=== PATIENT | female | born 1970 | race Hispanic/Latino ===

== ENCOUNTER 2019-03-16 05:51 | Day surgery (SDC) | payer MEDICAID ==
[~2019-03-16] VITALS: Ht 157.5 cm; Wt 96.2 kg
[~2019-03-16 05:51] MED LIST: SODIUM CHLORIDE 0.9% 1000ML 1,000 ML IV ONE
[2019-03-16 07:12] VITALS: BP 119/86
[2019-03-16 08:48] VITALS: BP 120/65
[2019-03-16 08:53] VITALS: BP 127/65
[2019-03-16 08:58] VITALS: BP 122/71
[2019-03-16 09:03] VITALS: BP 126/81
[2019-03-16 09:10] VITALS: BP 134/83
== END 2019-03-16 09:18 | disposition home or self-care (01) ==
LOC: ENDO 05:51 → DAH 05:51 → ENDO 09:18
PROVIDERS: ATTEND Internal Medicine
DX: D12.3 Benign neoplasm of transverse colon (principal); K29.40 Chronic atrophic gastritis without bleeding; K21.0 Gastro-esophageal reflux disease with esophagitis; K31.89 Other diseases of stomach and duodenum; K57.30 Diverticulosis of large intestine without perforation or abscess without bleeding; K64.0 First degree hemorrhoids; J45.909 Unspecified asthma, uncomplicated; E66.01 Morbid (severe) obesity due to excess calories; E03.9 Hypothyroidism, unspecified; E11.9 Type 2 diabetes mellitus without complications; Z98.890 Other specified postprocedural states; Z90.13 Acquired absence of bilateral breasts and nipples; Z98.51 Tubal ligation status; F17.210 Nicotine dependence, cigarettes, uncomplicated; Z68.39 Body mass index [BMI] 39.0-39.9, adult; Z85.3 Personal history of malignant neoplasm of breast
CPT/HCPCS: 43239; 45385; 82948; 88305; 88342; A4606 ×2; J7030; 45380